=== PATIENT | male | born 1950 | race Caucasian/White ===

== ENCOUNTER → 2019-06-12 | Outpatient (CLI) | payer MEDICARE ==
--- NOTE | 2019-06-12 21:29 | ECGEPIP ---
[facility] Test Date: 2019-06-12 Pat Name: MARY MARCELO Department: Room: - Gender: Male Project Consultant: RF : [id number] Requested By: Alban Veliz Order Number: [id number] Reading MD: Dakotah Badillo Measurements Intervals Mckenzie Rate: 64 P: 22 ME: 146 QRS: -36 QRSD: 121 T: 85 QT: 377 QTc: 389 Interpretive Statements SINUS RHYTHM MARKED LEFT AXIS DEVIATION LEFT VENTRICULAR HYPERTROPHY AND ST-T CHANGE Baseline artifact Comparison tracing not on file Electronically Signed on 06-12-2019 21:29:04 EST by Dakotah Badillo
== END ==
LOC: M EKG 14:30
PROVIDERS: ATTEND Ophthalmology Retina Specialist
DX: H33.059 Total retinal detachment, unspecified eye (principal)

== ENCOUNTER → 2025-04-16 | Outpatient (REF) | payer MEDICARE, MEDICAID ==
[~2025-04-16] MED LIST: IBUP-1720 PO
[2025-04-16 17:48] LABS: ALT/SGPT 15.0 U/L (7.0-40); AST/SGOT 28.0 U/L (<34); CALCIUM LEVEL 9.1 MG/DL (8.3-10.6); CARBON DIOXIDE LEVEL 25.0 MMOL/L (20-31); CHLORIDE LEVEL 105.0 MMOL/L (98-107); CHOLESTEROL LEVEL 70.0 MG/DL (<200); CHOLESTEROL RISK RATIO 8.23 (<5); CREATININE FOR GFR 1.01 MG/DL (0.70-1.30); GLOMERULAR FILTRATION RATE 77.6 (>42); LDL CHOLESTEROL 38.5 MG/DL (<100); NON-HDL-C 61.5 MG/DL; POTASSIUM SERUM 4.4 MMOL/L (3.5-5.1); PSA SCREENING 1.48 NG/ML (< 4.00); SODIUM LEVEL 140.0 MMOL/L (136-145); TRIGLYCERIDES LEVEL 115.0 MG/DL (<150)
[2025-04-16 17:50] LABS: FREE T4 1.01 NG/DL (0.89-1.76); VITAMIN B12 LEVEL 524.0 PG/ML (211-911)
[2025-04-16 19:09] LABS: PLATELET COUNT, AUTOMATED 21 10^3/uL (150-450)
[2025-04-16 19:37] LABS: EOSINOPHILS 1 % (0-3); LYMPHOCYTES 4 % (16-44); MONOCYTES 6 % (0-5); NEUTROPHILS 2 % (28-66)
[2025-04-16 19:38] LABS: BLAST CELLS 87 % (0-0)
[2025-04-16 19:42] LABS: PLATELET ESTIMATE DECREASED (NORMAL)
== END ==
LOC: M SFHCCAPE 09:07
PROVIDERS: ATTEND Physician Assistant Medical
DX: R07.9 Chest pain, unspecified (principal); R06.02 Shortness of breath; R63.4 Abnormal weight loss; Z13.1 Encounter for screening for diabetes mellitus; Z13.220 Encounter for screening for lipoid disorders; Z12.5 Encounter for screening for malignant neoplasm of prostate; R01.1 Cardiac murmur, unspecified
CPT/HCPCS: 80053; 80061; 82607; 82746; 83036; 83880; 84439; 84443; 85025; 85049; 85055; 85379; G0103

== ENCOUNTER 2025-04-17 11:56 | Emergency (ER) | payer MEDICAID, MEDICARE ==
[~2025-04-17] VITALS: Ht 185.4 cm; Wt 73.4 kg
[2025-04-17 13:07] LABS: PLATELET COUNT, AUTOMATED 28 10^3/uL (150-450)
[2025-04-17 13:19] LABS: ALT/SGPT 16.0 U/L (7.0-40); AST/SGOT 28.0 U/L (<34); CALCIUM LEVEL 9.1 MG/DL (8.3-10.6); CARBON DIOXIDE LEVEL 23.0 MMOL/L (20-31); CHLORIDE LEVEL 105.0 MMOL/L (98-107); CREATININE FOR GFR 1.13 MG/DL (0.70-1.30); GLOMERULAR FILTRATION RATE 67.8 (>42); LYMPHOCYTES 6 % (16-44); MONOCYTES 1 % (0-5); NEUTROPHILS 1 % (28-66); POTASSIUM SERUM 4.6 MMOL/L (3.5-5.1); SODIUM LEVEL 138.0 MMOL/L (136-145)
[2025-04-17 13:20] LABS: BLAST CELLS 92 % (0-0)
[2025-04-17 13:25] LABS: PLATELET ESTIMATE MARKED DECREASE (NORMAL)
[2025-04-17 13:32] LABS: INR 1.27
[2025-04-17] MEDS ORDERED: IBUP-1720 PO (13:39)
[2025-04-17] MEDS ORDERED: HOME MED LIST COMPLETE! XX SCH (13:40)
[2025-04-17 14:15] VITALS: BP 118/57; TEMP 97.6; O2SAT 96
== END 2025-04-17 14:24 | disposition short-term general hospital (02) ==
LOC: M ED 11:56
DX: C95.00 Acute leukemia of unspecified cell type not having achieved remission (principal); I45.10 Unspecified right bundle-branch block; R06.02 Shortness of breath; Z79.1 Long term (current) use of non-steroidal anti-inflammatories (NSAID)